=== PATIENT | female | born 1965 | race Two or more races ===

== ENCOUNTER 2019-03-17 07:49 | Day surgery (SDC) | payer OTHER | END 2019-03-17 17:10 | disposition home or self-care (01) | LOC: CIR.AMB 07:49 | DX: M65.332 Trigger finger, left middle finger (principal); M65.312 Trigger thumb, left thumb ==

== ENCOUNTER 2021-02-27 09:15 | Outpatient (CLI) | payer OTHER | END 2021-02-27 09:18 | disposition home or self-care (01) | LOC: SONOGRAMA 09:15 | PROVIDERS: ATTEND Pathology Anatomic Pathology & Clinical Pathology | DX: E04.8 Other specified nontoxic goiter (principal) ==